=== PATIENT | male | born 1970 | race Caucasian/White ===

== ENCOUNTER → 2021-09-02 | Day surgery (SDC) | payer OTHER ==
[~2021-09-02] VITALS: Ht 185.4 cm; Wt 90.7 kg
[~2021-09-02] MED LIST: ZINC PO
== END | disposition home or self-care (01) ==
LOC: FAS 11:06
DX: Z12.11 Encounter for screening for malignant neoplasm of colon (principal); K63.5 Polyp of colon; F17.290 Nicotine dependence, other tobacco product, uncomplicated; Z88.5 Allergy status to narcotic agent; Z88.0 Allergy status to penicillin
CPT/HCPCS: J2704; J7120

== ENCOUNTER 2021-11-15 12:19 | Emergency (ER) | payer OTHER ==
[2021-11-15] MEDS ORDERED: VIBRAMYCIN100 MG PO (13:05)
== END 2021-11-15 13:24 | disposition home or self-care (01) ==
LOC: FER 12:19
DX: S01.01XA Laceration without foreign body of scalp, initial encounter (principal); Z88.0 Allergy status to penicillin; Z88.6 Allergy status to analgesic agent; W22.8XXA Striking against or struck by other objects, initial encounter; Y92.89 Other specified places as the place of occurrence of the external cause; Y99.0 Civilian activity done for income or pay
CPT/HCPCS: 99283